=== PATIENT | female | born 1945 | race Caucasian/White ===

== ENCOUNTER 2023-06-02 13:47 | Outpatient (AMB) | payer OTHER, SELFPAY ==
--- NOTE | 2023-06-02 14:00 | HO.NEPHOV ---
HPI HPI Comments History of Present Illness Details I had the delight of seeing Aan in the office in follow-up of her chronic kidney disease and hypertension. She has history of coronary artery disease but denies any chest pain, shortness of breath, proximal nocturnal dyspnea, orthopnea or pedal edema. She has no orthostatic symptoms. She has not had any new medication changes. Her urine output is good. She has no urinary symptoms. She has not had any recent medication changes. She tries to maintain good hydration. She avoids nonsteroidal anti-inflammatory medications. She regularly follows up with her primary care physician. [facility] Medical History (Updated 06/02/23 @ 14:36 by Abraham Jon MD) Chronic kidney disease, stage 3a Renovascular hypertension Renal artery stenosis Hypertension Surgical History (Updated 06/02/23 @ 14:11 by Pat Schmid MA) History of colostomy reversal History of cholecystectomy Family History (Updated 06/02/23 @ 14:11 by Pat Schmid MA) Mother Diabetes Heart disease Father Heart disease Social History (Updated 06/02/23 @ 14:10 by Pat Schmid MA) Alcohol intake: never Patient Tobacco Use Status: Former Tobacco user Vital Signs 06/02/23 14:07 Height 4 ft 11 in Weight 154 lb BMI 31.1 BP 150/70 H Blood Pressure Location Lt brachial Position Sitting Pulse 74 Pulse Source Pulse Oximeter Physical Exam Vital Signs: Last Vital Signs Pulse 74 06/02/23 14:07 BP 150/70 H 06/02/23 14:07 BMI result Body Mass Index 31.1 Const General: comfortable and no acute distress Orientation/consciousness: patient oriented x3 HEENT Head: Yes normocephalic Mouth: Normal oral and palatal mucosa present Eyes EOM: EOMs intact bilaterally Neck Neck: Yes supple Resp Auscultation: clear to auscultation bilaterally Cardio Jugular venous distension: no JVD Rate: regular rate Heart sounds: Murmur heart sound present GI Palpation (GI): Soft to palpation Auscultation: normal bowel sounds General: Yes no CVA tenderness Back/Spine/Pelvis Back: no CVA tenderness Skin General skin exam: no rashes or lesions noted Neuro General: patient oriented x3 and moves all extremities Extrem General: Yes no pedal edema Assessment & Plan Assessment & Plan (1) Renal artery stenosis: Code(s): I70.1 - Atherosclerosis of renal artery (2) Renovascular hypertension: Code(s): I15.0 - Renovascular hypertension (3) Chronic kidney disease, stage 3a: Code(s): N18.31 - Chronic kidney disease, stage 3a Carlos Perez has 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 Her electrolytes have been acceptable. She has not tolerated DONNY inhibitor in the past. She has no symptoms of active coronary issues. Her hyperuricemia is well controlled on current dose of allopurinol. She is on statins. She maintains good triglyceride control with the help of fenofibrate. She is on Plavix as well. I did not adjust any dose of any medications including her diuretics. She avoids nonsteroidal anti-inflammatory medications. She maintains good hydration. I ordered follow-up blood work and urine studies. She may need Doppler of her renal arteries after next visit. All questions answered. Time spent for retrieval of data, patient encounter, answering questions and documentation 29 minutes. Orders: Orders Blood Urea Nitrogen 06/02/23 I15.0 - Renovascular hypertension, I70.1 - Atherosclerosis of renal artery, N18.31 - Chronic kidney disease, stage 3a Phosphorus 06/02/23 I15.0 - Renovascular hypertension, I70.1 - Atherosclerosis of renal artery, N18.31 - Chronic kidney disease, stage 3a Electrolytes 06/02/23 I15.0 - Renovascular hypertension, I70.1 - Atherosclerosis of renal artery, N18.31 - Chronic kidney disease, stage 3a Creatinine 06/02/23 I15.0 - Renovascular hypertension, I70.1 - Atherosclerosis of renal artery, N18.31 - Chronic kidney disease, stage 3a Calcium 06/02/23 I15.0 - Renovascular hypertension, I70.1 - Atherosclerosis of renal artery, N18.31 - Chronic kidney disease, stage 3a PTHI 06/02/23 I15.0 - Renovascular hypertension, I70.1 - Atherosclerosis of renal artery, N18.31 - Chronic kidney disease, stage 3a Vitamin D 25-OH Total 06/02/23 I15.0 - Renovascular hypertension, I70.1 - Atherosclerosis of renal artery, N18.31 - Chronic kidney disease, stage 3a Complete Blood Count Auto Diff 06/02/23 I15.0 - Renovascular hypertension, I70.1 - Atherosclerosis of renal artery, N18.31 - Chronic kidney disease, stage 3a Coding Level of Care Code Est Pt Level 4 (17152) Diagnoses Renal artery stenosis I70.1 Renovascular hypertension I15.0 Chronic kidney disease, stage 3a N18.31
[2023-06-02 14:07] VITALS: BP 150/70; PULSE 74; BMI 31.1
== END 2023-06-02 14:43 | disposition home or self-care (01) ==
PROVIDERS: PCP Internal Medicine; Visit Provider Internal Medicine Nephrology
DX: I70.1 Atherosclerosis of renal artery (principal); I15.0 Renovascular hypertension; N18.31 Chronic kidney disease, stage 3a
CPT/HCPCS: 99214

== ENCOUNTER → 2023-06-02 13:47 | Outpatient (BNVA) | payer OTHER, SELFPAY | PROVIDERS: PCP Internal Medicine; Visit Provider Internal Medicine Nephrology ==

== ENCOUNTER 2023-10-04 11:05 | Outpatient (AMB) | payer OTHER, SELFPAY ==
[2023-10-04 11:32] VITALS: BP 118/72; PULSE 76; O2SAT 96; BMI 31.3
--- NOTE | 2023-10-04 11:32 | HO.NEPHOV_ITS ---
HPI HPI Comments History of Present Illness Details I had the delight of seeing Ana in the office in follow-up of her chronic kidney disease and hypertension. She has history of coronary artery disease but denies any chest pain, shortness of breath, proximal nocturnal dyspnea, orthopnea or pedal edema. She has no orthostatic symptoms. She has not had any new medication changes. Her urine output is good. She has no urinary symptoms. She has not had any recent medication changes. She tries to maintain good hydration. She avoids nonsteroidal anti-inflammatory medications. She regularly follows up with her primary care physician. [facility] Medical History (Updated 10/04/23 @ 11:55 by Abraham Jon MD) Chronic kidney disease, stage 3a Renovascular hypertension Renal artery stenosis Hypertension Surgical History History of colostomy reversal History of cholecystectomy Family History Mother Diabetes Heart disease Father Heart disease Social History Alcohol intake: never Patient Tobacco Use Status: Former Tobacco user Vital Signs 10/04/23 11:32 Height 4 ft 11 in Weight 155 lb BMI 31.3 BP 118/72 Blood Pressure Location Rt brachial Position Sitting Pulse 76 Pulse Source Pulse Oximeter Pulse Oximetry (%) 96 Oxygen Delivery Method Room Air Physical Exam Vital Signs: Last Vital Signs Pulse 76 10/04/23 11:32 BP 118/72 10/04/23 11:32 Pulse Ox 96 10/04/23 11:32 Oxygen Delivery Method Room Air 10/04/23 11:32 BMI result Body Mass Index 31.3 Const General: comfortable and no acute distress Orientation/consciousness: patient oriented x3 HEENT Head: Yes normocephalic Mouth: Normal oral and palatal mucosa present Eyes EOM: EOMs intact bilaterally Neck Neck: Yes supple Resp Auscultation: clear to auscultation bilaterally Cardio Jugular venous distension: no JVD Rate: regular rate GI Palpation (GI): Soft to palpation Auscultation: normal bowel sounds General: Yes no CVA tenderness Back/Spine/Pelvis Back: no CVA tenderness Skin General skin exam: no rashes or lesions noted Neuro General: patient oriented x3 and moves all extremities Extrem General: Yes no pedal edema Assessment & Plan Assessment & Plan (1) Renal artery stenosis: Code(s): I70.1 - Atherosclerosis of renal artery (2) Renovascular hypertension: Code(s): I15.0 - Renovascular hypertension Plan Ana has 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 Her electrolytes have been acceptable. She has not tolerated DONNY inhibitor in the past. She has no symptoms of active coronary issues. Her hyperuricemia is well controlled on current dose of allopurinol. She is on statins. She maintains good triglyceride control with the help of fenofibrate. She is on Plavix as well. I did not adjust any dose of any medications including her diuretics. She avoids nonsteroidal anti-inflammatory medications. She maintains good hydration. I ordered follow-up blood work and urine studies. She may need Doppler of her renal arteries with time. All questions answered. Orders: Orders Creatinine Today E11.22 - Type 2 diabetes mellitus with diabetic chronic kidney disease, I15.0 - Renovascular hypertension, I70.1 - Atherosclerosis of renal artery, N18.30 - Chronic kidney disease, stage 3 unspecified, N18.31 - Chronic kidney disease, stage 3a Blood Urea Nitrogen Today E11.22 - Type 2 diabetes mellitus with diabetic chronic kidney disease, I15.0 - Renovascular hypertension, I70.1 - Atherosclerosis of renal artery, N18.30 - Chronic kidney disease, stage 3 unspecified, N18.31 - Chronic kidney disease, stage 3a Calcium Today E11.22 - Type 2 diabetes mellitus with diabetic chronic kidney disease, I15.0 - Renovascular hypertension, I70.1 - Atherosclerosis of renal artery, N18.30 - Chronic kidney disease, stage 3 unspecified, N18.31 - Chronic kidney disease, stage 3a Complete Blood Count Auto Diff Today E11.22 - Type 2 diabetes mellitus with diabetic chronic kidney disease, I15.0 - Renovascular hypertension, I70.1 - Atherosclerosis of renal artery, N18.30 - Chronic kidney disease, stage 3 unspecified, N18.31 - Chronic kidney disease, stage 3a Ferritin Today E11.22 - Type 2 diabetes mellitus with diabetic chronic kidney disease, I15.0 - Renovascular hypertension, I70.1 - Atherosclerosis of renal artery, N18.30 - Chronic kidney disease, stage 3 unspecified, N18.31 - Chronic kidney disease, stage 3a Electrolytes Today E11.22 - Type 2 diabetes mellitus with diabetic chronic kidney disease, I15.0 - Renovascular hypertension, I70.1 - Atherosclerosis of renal artery, N18.30 - Chronic kidney disease, stage 3 unspecified, N18.31 - Chronic kidney disease, stage 3a IRON PROFILE Today E11.22 - Type 2 diabetes mellitus with diabetic chronic kidney disease, I15.0 - Renovascular hypertension, I70.1 - Atherosclerosis of renal artery, N18.30 - Chronic kidney disease, stage 3 unspecified, N18.31 - Chronic kidney disease, stage 3a Phosphorus Today E11.22 - Type 2 diabetes mellitus with diabetic chronic kidney disease, I15.0 - Renovascular hypertension, I70.1 - Atherosclerosis of renal artery, N18.30 - Chronic kidney disease, stage 3 unspecified, N18.31 - Chronic kidney disease, stage 3a Parathyroid Hormone Intact Today E11.22 - Type 2 diabetes mellitus with diabetic chronic kidney disease, I15.0 - Renovascular hypertension, I70.1 - Atherosclerosis of renal artery, N18.30 - Chronic kidney disease, stage 3 unspecified, N18.31 - Chronic kidney disease, stage 3a Coding Level of Care Code Est Pt Level 4 (25311) Diagnoses Renal artery stenosis I70.1 Renovascular hypertension I15.0 Results Reviewed Nephrology Results: No Data to Display
== END 2023-10-04 11:57 | disposition home or self-care (01) ==
PROVIDERS: PCP Internal Medicine; Visit Provider Internal Medicine Nephrology
DX: I70.1 Atherosclerosis of renal artery (principal); I15.0 Renovascular hypertension
CPT/HCPCS: 99214

== ENCOUNTER → 2023-10-04 11:05 | Outpatient (BNVA) | payer OTHER, SELFPAY | PROVIDERS: PCP Internal Medicine; Visit Provider Internal Medicine Nephrology ==

== ENCOUNTER 2024-03-29 13:13 | Outpatient (AMB) | payer OTHER, SELFPAY ==
--- NOTE | 2024-03-29 13:24 | HO.NEPHOV ---
Vital Signs 03/29/24 13:41 Height 4 ft 11 in Weight 153 lb 8 oz BMI 31.0 BP 140/70 H Blood Pressure Location Lt brachial Position Sitting Pulse 79 Pulse Source Pulse Oximeter Pulse Oximetry (%) 98 Oxygen Delivery Method Room Air Intake Visit Reasons: 6 mon follow up- Conf Miller Apprentice Required: No Accompanied by: Self / Same As Patient Allergies latex Allergy (Verified 03/29/24 13:42) Unknown HPI Comments Details: I had the delight of seeing Ana in the office in follow-up of her chronic kidney disease and hypertension. She has history of coronary artery disease but denies any chest pain, shortness of breath, proximal nocturnal dyspnea, orthopnea or pedal edema. She has no orthostatic symptoms. She has not had any new medication changes. Her urine output is good. She has no urinary symptoms. She has not had any recent medication changes. She tries to maintain good hydration. She avoids nonsteroidal anti-inflammatory medications. 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 [facility] Medical History (Updated 10/04/23 @ 11:55 by Abraham Jon MD) Chronic kidney disease, stage 3a Renovascular hypertension Renal artery stenosis Hypertension Surgical History History of colostomy reversal History of cholecystectomy Family History Mother Diabetes Heart disease Father Heart disease Social History Alcohol intake: never Patient Tobacco Use Status: Former Tobacco user Review of Systems Const All systems reviewed & are unremarkable except as noted in HPI and below Physical Exam Vital Signs: Last Vital Signs Pulse 79 03/29/24 13:41 BP 176/70 H 03/29/24 13:41 Pulse Ox 98 03/29/24 13:41 Oxygen Delivery Method Room Air 03/29/24 13:41 BMI result Body Mass Index 31.0 Const General: comfortable and no acute distress Orientation/consciousness: patient oriented x3 HEENT Head: Yes normocephalic Mouth: Normal oral and palatal mucosa present Eyes EOM: EOMs intact bilaterally Neck Neck: Yes supple Resp Auscultation: clear to auscultation bilaterally Cardio Jugular venous distension: no JVD Rate: regular rate GI Palpation (GI): Soft to palpation Auscultation: normal bowel sounds General: Yes no CVA tenderness Back/Spine/Pelvis Back: no CVA tenderness Skin General skin exam: no rashes or lesions noted Neuro General: patient oriented x3 and moves all extremities Extrem General: Yes no pedal edema Results Reviewed Nephrology Results: No Data to Display Assessment & Plan Assessment & Plan (1) Chronic kidney disease, stage 3a: Code(s): N18.31 - Chronic kidney disease, stage 3a Category: Medical (2) Renovascular hypertension: Code(s): I15.0 - Renovascular hypertension Category: Medical (3) Renal artery stenosis: Code(s): I70.1 - Atherosclerosis of renal artery Category: Medical Plan Ana has stage III 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 Her blood pressure is well controlled. Her electrolytes have been acceptable. She has not tolerated DONNY inhibitor in the past. She has no symptoms of active coronary issues. Her hyperuricemia is well controlled on current dose of allopurinol. She is on statins. She maintains good triglyceride control with the help of fenofibrate. She is on Plavix as well. I did not adjust any dose of any medications including her diuretics. She avoids nonsteroidal anti-inflammatory medications. She maintains good hydration. I ordered follow-up blood work and urine studies. She may need Doppler of her renal arteries with time. All questions answered. Orders: Orders Creatinine Today I15.0 - Renovascular hypertension, I70.1 - Atherosclerosis of renal artery, N18.31 - Chronic kidney disease, stage 3a Parathyroid Hormone Intact Today I15.0 - Renovascular hypertension, I70.1 - Atherosclerosis of renal artery, N18.31 - Chronic kidney disease, stage 3a Vitamin D 25-OH Total Today I15.0 - Renovascular hypertension, I70.1 - Atherosclerosis of renal artery, N18.31 - Chronic kidney disease, stage 3a Blood Urea Nitrogen Today I15.0 - Renovascular hypertension, I70.1 - Atherosclerosis of renal artery, N18.31 - Chronic kidney disease, stage 3a Electrolytes Today I15.0 - Renovascular hypertension, I70.1 - Atherosclerosis of renal artery, N18.31 - Chronic kidney disease, stage 3a Calcium Today I15.0 - Renovascular hypertension, I70.1 - Atherosclerosis of renal artery, N18.31 - Chronic kidney disease, stage 3a Coding Level of Care Code Est Pt Level 4 (64531) Diagnoses Chronic kidney disease, stage 3a N18.31 Renovascular hypertension I15.0 Renal artery stenosis I70.1
[2024-03-29 13:41] VITALS: BP 140/70; PULSE 79; O2SAT 98; BMI 31.0
== END 2024-03-29 14:05 | disposition home or self-care (01) ==
PROVIDERS: PCP Internal Medicine; Visit Provider Internal Medicine Nephrology
DX: I12.9 Hypertensive chronic kidney disease with stage 1 through stage 4 chronic kidney disease, or unspecified chronic kidney disease (principal); N18.31 Chronic kidney disease, stage 3a; I70.1 Atherosclerosis of renal artery
CPT/HCPCS: 99214

== ENCOUNTER → 2024-03-29 13:13 | Outpatient (BNVA) | payer OTHER, SELFPAY | PROVIDERS: PCP Internal Medicine; Visit Provider Internal Medicine Nephrology ==